=== PATIENT | male | born 1955 | race Caucasian/White ===

== ENCOUNTER 2020-01-04 10:54 | Day surgery (SDC) | payer OTHER ==
[~2020-01-04] VITALS: Ht 165.1 cm; Wt 97.0 kg
[~2020-01-04 10:54] MED LIST: ALBU90OI61; ASPI325 PO; ASPI81CH PO; BUDE6HFA INH; CLON.1 PO; CLOP75 PO; DULERA 100 MCG/13 GM; DULO60 PO; FLUSAL2505; GABA300 PO; HYDPAM50 PO; LATA.005SO BOTHEYES; LIPTRUZET; LIPTRUZET PO; LOSA50 PO; Lipofen150 MG PO; MAGNESIUM250 MG PO; MAXIMUM DAILY1 EACH PO; NAPR550 PO; NITRO-DUR1 EAC1 TOP; NITROGLYCERIN0.4 M1 SL; TAMS.4ER PO; TELM80 PO; TEMA30 PO; TIZA4 PO; TOPROL XL25 MG PO; VITAMIN D31000 UNIT PO; ZOLP10 PO
[2020-01-04] MEDS ORDERED: Crestor40 MG (11:20)
--- NOTE | 2020-01-04 13:01 | NUR ---
PT RETURNED TO RECOVERY ROOM IN [facility]. RIGHT AND LEFT BILATERAL TR BAND SITES SOFT NON-TENDER WITH NO HEMATOMA, NO PULSATILE BLEEDING; CAP REFILL < 3 SEC BILAT FINGER TIPS. PT DENIES CP. CALL LIGHT IN REACH.
--- NOTE | 2020-01-04 14:36 | NUR ---
DISCHARGE INSTRUCTIONS REVIEWED ALL QUESTIONS ANSWERED.
--- NOTE | 2020-01-04 14:52 | NUR ---
BILAT TR BANDS DEFLATED OVER 10 MIN; NO HEMATOMAS, NO PULSATILE BLEEDING AND SOFT.
--- NOTE | 2020-01-04 15:06 | NUR ---
NO CHANGES TO BILAT DEFLATED TR BANDS; FULL REPORT PROVIDED BRYCE LEVY TO ASSUME CARE OF PT IN RECOVERY ROOM.
--- NOTE | 2020-01-04 15:49 | NUR ---
DISCHARGE PT DRESSED SELF WITH NO COMPLICATIONS. BOTH TR BANDS REMOVED, SITES CLEANED, CLOTH DOT DRESSINGS APPLIED. NO BLEEDING, OOZING OR HEMATOMAS NOTED AT EITHER SITE. IV DCD WITH CATH INTACT. VSS. PT STATES HIS UNDERSTANDING OF DISCHARGE AND SITE CARE INSTRUCTIONS AND DENIES ANY QUESTIONS OR CONCERNS. PT TAKEN BY WHEELCHAIR TO EXIT WHERE ROOM MATE WAS WAITING WITH VEHICLE.
== END 2020-01-04 14:30 | disposition home or self-care (01) ==
LOC: MHTC 10:54
DX: I25.118 Atherosclerotic heart disease of native coronary artery with other forms of angina pectoris (principal); I13.0 Hypertensive heart and chronic kidney disease with heart failure and stage 1 through stage 4 chronic kidney disease, or unspecified chronic kidney disease; I70.8 Atherosclerosis of other arteries; N18.9 Chronic kidney disease, unspecified; I50.9 Heart failure, unspecified; I70.209 Unspecified atherosclerosis of native arteries of extremities, unspecified extremity; E78.00 Pure hypercholesterolemia, unspecified; J44.9 Chronic obstructive pulmonary disease, unspecified; Z88.5 Allergy status to narcotic agent; Z88.0 Allergy status to penicillin; Z79.82 Long term (current) use of aspirin; Z87.891 Personal history of nicotine dependence
CPT/HCPCS: 93454; 99152; 99153; C1769; C1894; J1644; J2250; J3010; J7030; J7040; Q9967

== ENCOUNTER 2022-07-07 22:19 | Emergency (ER) | payer OTHER ==
[~2022-07-07] VITALS: Ht 177.8 cm; Wt 104.3 kg
[~2022-07-07 22:19] MED LIST changes: +Crestor40 MG; +ONDA4 PO; +Percocet 5-3251 EACH PO
[2022-07-07 22:37] LABS: PCO2 Arterial 28.5 mmHg (35-45); PO2 Arterial 166 mmHg (80-100)
[2022-07-07 22:38] LABS: pH Blood Arterial 7.29 (7.35-7.45)
[2022-07-07 22:41] LABS: BASOPHILS ABSOLUTE AUTO 0.01 K/mm3 (0.00-0.23); BASOPHILS PERCENT AUTO 0 % (0-2); EOSINOPHILS PERCENT AUTO 0 % (0-6); Hematocrit 26.3 % (37.0-53.0); Hemoglobin 8.9 g/dL (13.5-17.5); IMMATURE GRAN ABSOLUTE AUTO 0.17 K/mm3 (0.00-0.10); IMMATURE GRAN PERCENT AUTO 1 % (0-1); LYMPHOCYTES ABSOLUTE AUTO 0.94 K/mm3 (0.84-5.20); LYMPHOCYTES PERCENT AUTO 6 % (21-46); MONOCYTES ABSOLUTE AUTO 1.35 K/mm3 (0.16-1.47); MONOCYTES PERCENT AUTO 9 % (4-13); Mean Corpuscular HGB 26.1 pg (26.0-34.0); Mean Corpuscular HGB Conc 33.8 g/dL (31.5-36.5); Mean Corpuscular Volume 77 fL (80-100); Mean Platelet Volume 12.4 fL (9.1-12.4); NEUTROPHILS ABSOLUTE AUTO 12.48 K/mm3 (1.96-9.15); NEUTROPHILS PERCENT AUTO 84 % (41-73); Platelet Count 353 K/mm3 (150-400); RDW Coefficient Variation 13.7 % (11.7-14.2); RDW Standard Deviation 39.1 fL (35.1-46.3); Red Blood Cell Count 3.41 M/mm3 (4.30-5.90); White Blood Cell Count 14.95 K/mm3 (4.00-11.30)
[2022-07-07 23:10] LABS: Albumin, Blood 2.2 g/dL (3.4-5.0); Albumin/Globulin Ratio 0.4 (0.8-1.8); Bilirubin, Total 0.6 mg/dL (0.1-1.0); Bun/Creatinine Ratio 10.3 (12.0-20.0); Calcium, Blood 8.2 mg/dL (8.5-10.1); Creatinine, Blood 14.6 mg/dL (0.60-1.20); Globulin, Blood 4.9 g/dL (2.2-4.0); Potassium, Blood 5.5 mmol/L (3.5-5.5); Total Protein, Blood 7.1 g/dL (6.4-8.2)
[2022-07-07 23:18] LABS: Source, Urine Foley catheter
[2022-07-07 23:22] LABS: Appearance, Urine Hazy (Clear); Bilirubin, Urine Neg (Neg); Blood, Urine 4+ (Neg); Color, Urine Brown (P-Yellow); Glucose Qualitative, Urine Neg (Neg); Ketones, Urine Neg (Neg); Leukocyte Esterase, Urine 1+ (Neg); Nitrite, Urine Neg (Neg); Protein, Urine 2+ (Neg); Specific Gravity, Urine 1.025 (1.003-1.022); Urobilinogen, Urine NORM (Normal)
[2022-07-07 23:29] LABS: Amorphous Light (0-Heavy); Bacteria Mod /hpf; Red Blood Cells, Urine 0-2 /hpf (0-2); Squamous Epithelial Cells Not Seen /hpf (Few); Transitional Epithelial Cells Mod /hpf (0-Rare)
[2022-07-07 23:32] LABS: U Amphetamine Screen Not Detected; U Barbituate Screen Not Detected; U Benzodiazapine Screen Not Detected; U Buprenorphine Screen Not Detected; U Cannabinoids Screen Not Detected; U Cocaine Screen Not Detected; U Methadone Screen Not Detected; U Methamphetamine Screen Not Detected; U Opiates Screen Not Detected; U Oxycodone Screen DETECTED; U Phencyclidine Screen Not Detected; U Propoxyphene Screen Not Detected
[2022-07-07 23:41] LABS: Creatine Kinase MB 34.9 ng/mL (0.0-3.6)
[2022-07-07 23:55] LABS: Creatine Kinase MB Index 0.6 (0.0-4.0)
== END 2022-07-08 01:05 ==
LOC: ER 22:19 → ICUW 07-08 00:10 → ER 07-08 01:05
PROVIDERS: Emergency Medicine
DX: I46.9 Cardiac arrest, cause unspecified (principal); J96.91 Respiratory failure, unspecified with hypoxia; G92.8 Other toxic encephalopathy; E87.8 Other disorders of electrolyte and fluid balance, not elsewhere classified; D64.9 Anemia, unspecified; M62.82 Rhabdomyolysis; S52.572A Other intraarticular fracture of lower end of left radius, initial encounter for closed fracture; I10 Essential (primary) hypertension; E78.5 Hyperlipidemia, unspecified; W19.XXXA Unspecified fall, initial encounter; Z88.0 Allergy status to penicillin; Z88.5 Allergy status to narcotic agent; Z79.899 Other long term (current) drug therapy; Z79.82 Long term (current) use of aspirin; Z87.891 Personal history of nicotine dependence
CPT/HCPCS: 31500; 36600; 51702; 70450; 71045; 73110; 80053; 81001; 82550; 82553; 82803; 84484; 85025; 87086; 93005; 93010; 94002; J0330; J1265; J2250; J2310; J7030; J7060